=== PATIENT | male | born 1955 | race Caucasian/White ===

== ENCOUNTER 2017-11-22 20:17 | Emergency (ER) | payer OTHER ==
[~2017-11-22] VITALS: Ht 172.7 cm; Wt 102.3 kg
[~2017-11-22 20:17] MED LIST: ACETAMINOPHEN650 M7 PO; ASPIR-LOW81 MG PO; ATROVENT 00.5 MG/2.5 IH; COLACE100 MG PO; COUMADIN1 MG PO; COUMADIN3 MG PO; COUMADIN4 MG PO; Colace PO; Coumadin,Jantoven PO; DAILY VITAMIN1 EAC8 PO; DULCOLAX5 MG PO; Dulcolax PO; ERYTHROMYC1 APPLICAT LEFT EYE; Ecotrin PO; FLOMAX0.4 MG PO; Flomax PO; KLOR-CON M1010 MEQ PO; LASIX40 MG PO; LEVAQUIN500 MG PO; LITE COAT ASPI325 M1 PO; LOPERAMIDE2 M1 PO; LOPRESSOR25 MG PO; LOPRESSOR50 MG PO; Lasix PO; Levaquin PO; Lopressor PO; Lotrimin Cream TP; METOPROLOL TART50 MG PO; MULTI-DAY VITA1 EACH PO; MULTIVITAMIN1 EAC2 PO; Micro-K,K-Tab,K-Dur, PO; NASAL & SINUS D30 MG PO; PACERONE400 MG PO; PHILLIPS'400 MG/5 M PO; PRAVACHOL10 MG PO; PRAVASTATIN SOD10 MG PO; PREDNISONE10 MG PO; PROVENTIL,2.5 MG/3 M IH; Pravachol PO; ROBITUSSIN DM118 ML PO; ROBITUSSIN100 MG/5 M PO; Robitussin DM PO; TRAMADOL HCL50 MG PO; TYLENOL REGULA325 MG PO; Theragran PO; Tylenol Regular Stre PO; ULTRAM50 MG PO; Ultram PO; VENTOLIN HFA18 GM IH; prednisone
[2017-11-22 22:07] LABS: HEMATOCRIT 37.1 % (38.0-50.0); HEMOGLOBIN 12.9 G/DL (12.5-16.6); MCH 32.7 PG (29.0-34.0); MCHC 34.8 G/DL (30.0-36.0); MCV 94.2 FL (86-99); PLATELET COUNT 168 K/uL (156-360); RBC DIS.WIDTH-CV 12.1 % (11.8-14.6); RBC DIS.WIDTH-SD 42.2 % (39-53); RED BLOOD COUNT 3.94 M/uL (4.00-5.50); WHITE BLOOD COUNT 4.9 K/uL (4.1-10.2)
[2017-11-22 22:17] LABS: ALBUMIN 4.4 g/dL (3.2-4.8); CHLORIDE 101 mEq/L (99-109); POTASSIUM 4.6 mEq/L (3.7-5.4); SODIUM 139 mEq/L (136-147)
[2017-11-22 22:19] LABS: GLUCOSE 103 mg/dL (70-99); TOTAL PROTEIN 7.5 g/dL (6.4-8.3)
[2017-11-22 22:21] LABS: TOTAL BILIRUBIN 0.3 mg/dL (0.0-1.0)
[2017-11-22 22:23] LABS: ALKALINE PHOSPHATASE 179 IU/L (3-129); CREATININE 0.9 mg/dL (0.6-1.3); GFR ESTIMATE (CALCULATED) > 59 mL/min/ (58.99-99999)
[2017-11-22 22:24] LABS: UREA NITROGEN (BUN) 16 mg/dL (9-23)
[2017-11-22 22:25] LABS: AST (GOT) 27 IU/L (2-34)
[2017-11-22 22:26] LABS: ALT (GPT) 14 IU/L (3-49)
[2017-11-23] MEDS ORDERED: KEFLEX500 MG PO (00:43)
[2017-11-23 01:00] VITALS: BP 134/84
== END 2017-11-23 01:00 | disposition home or self-care (01) ==
LOC: EME 20:17 → RME 20:17
PROVIDERS: Physician Assistant
DX: L03.213 Periorbital cellulitis (principal); F79 Unspecified intellectual disabilities; I10 Essential (primary) hypertension; Z79.82 Long term (current) use of aspirin
CPT/HCPCS: 70487; 80053; 85027; 99281; 99284; J7030